=== PATIENT | female | born 1940 | race Caucasian/White ===

== ENCOUNTER 2016-06-17 12:46 | Outpatient (CLI) | payer MEDICARE, OTHER | END 2016-06-17 12:47 | disposition home or self-care (01) | DX: I10 Essential (primary) hypertension (principal) ==

== ENCOUNTER 2016-07-04 09:12 | Outpatient (CLI) | payer MEDICARE, OTHER | END 2016-07-04 09:13 | disposition home or self-care (01) | DX: E78.00 Pure hypercholesterolemia, unspecified (principal) ==

== ENCOUNTER 2016-08-05 10:17 | Outpatient (CLI) | payer MEDICARE, OTHER ==
[2016-08-05 19:03] LABS: CHOL/HDL RATIO 3.5 (<4.4); CHOLESTEROL 233 mg/dL; HDL CHOLESTEROL 66 mg/dL; LDL/HDL RATIO 2.3 (<4.4); TRIGLYCERIDES 68 mg/dL; VLDL CHOLESTEROL 14 mg/dL
== END 2016-08-05 10:18 | disposition home or self-care (01) ==
LOC: LAB.F 10:17
PROVIDERS: ATTEND Internal Medicine
DX: E78.00 Pure hypercholesterolemia, unspecified (principal)
CPT/HCPCS: 36415; 80061

== ENCOUNTER 2017-04-08 09:50 | Outpatient (CLI) | payer MEDICARE, OTHER ==
[2017-04-08 18:56] LABS: ALBUMIN 4.1 g/dL (3.2-5.5); ALBUMIN/GLOBULIN RATIO 1.4 (1.0-2.2); ALKALINE PHOSPHATASE 69 IU/L (42-121); ALT ALANINE AMINOTRANSFERASE 20 IU/L (10-60); AST ASPARTATE AMINOTRANSFERASE 26 IU/L (10-42); BILIRUBIN,TOTAL 1.1 mg/dL (0.2-1.0); BUN - BLOOD UREA NITROGEN 16 mg/dL (6-20); CARBON DIOXIDE - CO2 29 mmol/L (21-32); CHLORIDE 100 mmol/L (101-111); CHOL/HDL RATIO 2.5 (<4.4); CHOLESTEROL 131 mg/dL; CREATININE 0.9 mg/dL (0.4-1.0); GFR - MDRD 61 (>89); GLUCOSE 91 mg/dL (70-100); HDL CHOLESTEROL 53 mg/dL; LDL CHOLESTEROL,CALCULATED 62 mg/dL; LDL/HDL RATIO 1.2 (<4.4); SODIUM 138 mmol/L (135-145); TOTAL PROTEIN 7.1 g/dL (6.7-8.2); VLDL CHOLESTEROL 16 mg/dL
== END 2017-04-08 09:51 | disposition home or self-care (01) ==
LOC: LAB.F 09:50
PROVIDERS: ATTEND Family Medicine
DX: E78.00 Pure hypercholesterolemia, unspecified (principal); I10 Essential (primary) hypertension
CPT/HCPCS: 36415; 80053; 80061; 83721

== ENCOUNTER 2017-04-15 08:51 | Outpatient (CLI) | payer MEDICARE, OTHER ==
[2017-04-15 10:36] LABS: CALCIUM 9.3 mg/dL (8.5-10.3); CREATININE 0.8 mg/dL (0.4-1.0)
== END 2017-04-15 08:52 | disposition home or self-care (01) ==
LOC: LAB.F 08:51
PROVIDERS: ATTEND Family Medicine
DX: E87.6 Hypokalemia (principal)
CPT/HCPCS: 36415; 80048

== ENCOUNTER 2017-05-20 13:08 | Emergency (ER) | payer MEDICARE, OTHER ==
--- NOTE | 2017-05-20 15:47 | ED Physician Documentation ---
PD HPI LOWER EXT INJURY - Stated complaint Stated Complaint: LEG PX - Chief complaint Chief Complaint: Ext Problem - History obtained from History obtained from: Patient - History of Present Illness PD HPI LOW EXT INJURY LOCATION: Right, Lower leg Type of injury: No: Fall, Twist Where injury occurred: Other (she had cramping pain in right leg while in [place] 3 days ago. Lasted for part of a day. Then it improved and felt okay. She then had some tightness feeling in chest for part of a day. She said she did not want to go to ER in [place], so waited until she flew home and arrived today into [place]. Called [facility] to make an appt and they would not give appt with her symptoms and told her to go to the ER. She wanted to go to [facility], since the pain had been 3 days ago, but office staff insisted. She has not had pain in leg nor chest for 3 days.) Timing - onset: How many days ago (3) Timing - duration: Hours Timing - details: Abrupt onset, Now resolved Improved by: Rest Worsened by: No: Palpating Associated symptoms: No: Weakness, Numbness Similar symptoms before: Has not had sx before Recently seen: Not recently seen Review of Systems Constitutional: denies: Fever, Chills Nose: denies: Rhinorrhea / runny nose, Congestion Throat: denies: Sore throat Cardiac: denies: Palpitations, Pedal edema, Calf pain Respiratory: denies: Dyspnea, Cough GI: denies: Abdominal Pain, Nausea, Vomiting, Diarrhea Skin: denies: Rash, Lesions Musculoskeletal: denies: Neck pain, Back pain PD PAST MEDICAL HISTORY - Past Medical History Cardiovascular: Hypertension Endocrine/Autoimmune: None GI: None : None HEENT: None Psych: None Musculoskeletal: None Derm: None - Past Surgical History General: Other HEENT: Other - Present Medications Home Medications: Ambulatory Orders Medication Instructions Recorded Confirmed Potassium Chloride 10 meq PO DAILY #30 tablet.er 05/20/17 - Allergies Allergies/Adverse Reactions: Allergies Allergy/AdvReac Type Severity Reaction Status Date / Time No Known Drug Allergies Allergy Verified 05/20/17 13:19 - Family History Family history: reports: Non contributory PD ED PE NORMAL - Vitals Vital signs reviewed: Yes - General General: Alert and oriented X 3, No acute distress, Well developed/nourished - HEENT HEENT: Pharynx benign - Neck Neck: Supple, no meningeal sign, No adenopathy - Cardiac Cardiac: RRR, No murmur - Respiratory Respiratory: Clear bilaterally - Abdomen Abdomen: Soft, Non tender - Back Back: No CVA TTP - Derm Derm: Normal color, Warm and dry - Extremities Extremities: No deformity, No tenderness to palpate, Normal ROM s pain, No edema , No calf tenderness / cord - Neuro Neuro: Alert and oriented X 3, No motor deficit, Normal speech Results - Vitals Vitals: Oxygen O2 Source Room air - EKG (time done) 16:11 Rate: Rate (enter#) (59) Rhythm: NSR [place]: Normal Intervals: Normal AR Ischemia: Normal ST segments, Other (somewhat low voltage). No: ST elevation c/ w ischemia, ST depression - Labs Labs: Laboratory Tests 05/20/17 05/20/17 05/20/17 16:22 16:22 16:22 WBC 8.4 RBC 4.76 Hgb 13.7 Hct 40.2 MCV 84.5 MCH 28.7 MCHC 34.0 RDW 13.6 Plt Count 296 MPV 8.2 Neut # 4.1 Lymph # 3.2 [place] # 0.6 Eos # 0.5 Baso # 0.1 Absolute Nucleated RBC 0.01 Nucleated RBC % 0.1 Sodium 136 Potassium 2.2 L* Chloride 96 L Carbon Dioxide 27 Anion Gap 13.0 BUN 14 Creatinine 0.9 Estimated GFR (MDRD) 61 L Glucose 113 H Calcium 9.2 Total Bilirubin 0.9 AST 33 ALT 26 Alkaline Phosphatase 72 Troponin I < 0.04 Total Protein 7.2 Albumin 4.5 Globulin 2.7 Albumin/Globulin Ratio 1.7 Lipase 24 - Rads (name of study) duplex right leg Radiology: Prelim report reviewed (no DVT) PD MEDICAL DECISION MAKING - ED course Complexity details: considered differential (She has considerably low potassium , but is looking okay. CP episode does not seem ischemic. ), d/w patient Departure - Departure Disposition: 01 Home, Self Care Clinical Impression: Chest discomfort, Hypokalemia Condition: Stable Record reviewed to determine appropriate education?: Yes Instructions: Hypokalemia Dc Follow-Up: Juan Ramirez MD [Primary Care Provider] - Prescriptions: Potassium Chloride 10 meq PO DAILY #30 tablet.er Comments: Call your primary care clinic tomorrow and tell them your potassium was really low and that the ER doctor suggest changing your blood pressure medicine to one without a diuretic. Meanwhile start a potassium supplement daily as well as a high potassium diet. Have your electrolytes rechecked in about a week. There is no signs of heart attack, blood clots, other significant cause for the episode of arm and chest discomfort you have had on your trip. Normal activity is okay. Discharge Date/Time: 05/20/17 17:58
[2017-05-20 16:38] LABS: BASOPHILS # (AUTO) 0.1 10^3/uL (0.0-0.1); BASOPHILS % (AUTO) 0.7 %; EOSINOPHILS # (AUTO) 0.5 10^3/uL (0.0-0.7); EOSINOPHILS % (AUTO) 5.9 %; HGB - HEMOGLOBIN 13.7 g/dL (12.0-16.0); LYMPHOCYTES # (AUTO) 3.2 10^3/uL (1.5-3.5); LYMPHOCYTES % (AUTO) 37.8 %; MEAN CORPUSCULAR HEMOGLOBIN 28.7 pg (27.0-31.0); MEAN CORPUSCULAR VOLUME 84.5 fL (81.0-99.0); MEAN PLATELET VOLUME 8.2 fL (7.9-10.8); MONOCYTES # (AUTO) 0.6 10^3/uL (0.0-1.0); MONOCYTES % (AUTO) 6.7 %; NEUTROPHILS # (AUTO) 4.1 10^3/uL (1.5-6.6); NEUTROPHILS % (AUTO) 48.9 %; PLT - PLATELET COUNT 296 10^3/uL (130-450); RED BLOOD COUNT 4.76 10^6/uL (4.20-5.40); RED CELL DISTRIBUTION WIDTH 13.6 % (12.0-15.0); WHITE BLOOD COUNT 8.4 x10^3/uL (4.8-10.8)
[2017-05-20 16:49] LABS: ALBUMIN 4.5 g/dL (3.2-5.5); ALBUMIN/GLOBULIN RATIO 1.7 (1.0-2.2); BILIRUBIN,TOTAL 0.9 mg/dL (0.2-1.0); CALCIUM 9.2 mg/dL (8.5-10.3); CREATININE 0.9 mg/dL (0.4-1.0); TOTAL PROTEIN 7.2 g/dL (6.7-8.2)
[2017-05-20] MEDS ORDERED: POTASSIUM BICARB 25 MEQ TABLET PO STA (16:59)
--- NOTE | 2017-05-20 17:23 | Ultrasound Preliminary Report ---
Exam: US DUPLEX EXT VEINS RIGHT IMPRESSION: No evidence for deep venous thrombosis. [facility] SITE ID: [id number]
--- NOTE | 2017-05-20 17:26 | Ultrasound Report ---
EXAM: RIGHT LOWER EXTREMITY VENOUS ULTRASOUND EXAM DATE: 05/20/2017 05:02 PM. CLINICAL HISTORY: Right leg cramping last week while in [place]. COMPARISON: None. TECHNIQUE: Real-time sonographic vascular imaging was performed by the geosciences faculty member through the lower extremity utilizing both color-flow and Doppler spectral analysis. Multiple patient representative static scotty ges were saved for review. FINDINGS: Common Femoral Vein (CFV): Normal. CFV-GSV Junction: Normal. Profunda Femoral Vein (PFV): Normal. Femoral Vein (FV) Prox: Normal. Femoral Vein (FV) Mid: Normal. Femoral Vein (FV) Dist: Normal. Popliteal Vein: Normal. Posterior Tibial Veins: Normal. Peroneal Veins: Normal. Contralateral Side CFV: Normal. Other: None. IMPRESSION: No evidence for deep venous thrombosis. [facility] Referring Provider Line: [phone] SITE ID: [id number]
[2017-05-20 17:57] VITALS: BP 127/92
== END 2017-05-20 17:58 | disposition home or self-care (01) ==
LOC: ED 13:08
DX: R07.89 Other chest pain (principal); E87.6 Hypokalemia; I10 Essential (primary) hypertension; R94.31 Abnormal electrocardiogram [ECG] [EKG]
CPT/HCPCS: 36415; 80053; 83690; 84484; 85025; 93005; 93971; 99283; A9270

== ENCOUNTER 2017-05-26 07:42 | Outpatient (CLI) | payer MEDICARE, OTHER ==
[2017-05-26 10:48] LABS: CREATININE 0.7 mg/dL (0.4-1.0)
== END 2017-05-26 07:43 | disposition home or self-care (01) ==
LOC: LAB.F 07:42
PROVIDERS: ATTEND Family Medicine
DX: E87.6 Hypokalemia (principal); I10 Essential (primary) hypertension
CPT/HCPCS: 36415; 80048

== ENCOUNTER 2017-06-20 11:41 | Outpatient (CLI) | payer MEDICARE, OTHER ==
[2017-06-20 18:28] LABS: CALCIUM 9.2 mg/dL (8.5-10.3); CREATININE 0.8 mg/dL (0.4-1.0)
== END 2017-06-20 11:42 | disposition home or self-care (01) ==
LOC: LAB.F 11:41
PROVIDERS: ATTEND Family Medicine
DX: E87.6 Hypokalemia (principal)
CPT/HCPCS: 36415; 80048

== ENCOUNTER 2017-08-21 11:09 | Outpatient (CLI) | payer MEDICARE, OTHER ==
[2017-08-21 18:38] LABS: CALCIUM 9.3 mg/dL (8.5-10.3); CREATININE 0.7 mg/dL (0.4-1.0)
== END 2017-08-21 11:10 | disposition home or self-care (01) ==
LOC: LAB.F 11:09
PROVIDERS: ATTEND Internal Medicine
DX: I10 Essential (primary) hypertension (principal)
CPT/HCPCS: 36415; 80048

== ENCOUNTER 2017-08-29 10:01 | Outpatient (CLI) | payer MEDICARE, OTHER ==
[2017-08-29 18:12] LABS: CALCIUM 9.2 mg/dL (8.5-10.3); CREATININE 0.8 mg/dL (0.4-1.0)
== END 2017-08-29 10:02 | disposition home or self-care (01) ==
LOC: LAB.F 10:01
PROVIDERS: ATTEND Internal Medicine
DX: E87.6 Hypokalemia (principal)
CPT/HCPCS: 36415; 80048

== ENCOUNTER 2017-10-07 08:09 | Outpatient (CLI) | payer MEDICARE, OTHER ==
[2017-10-07 11:59] LABS: BUN - BLOOD UREA NITROGEN 16 mg/dL (6-20); CALCIUM 8.8 mg/dL (8.5-10.3); CARBON DIOXIDE - CO2 27 mmol/L (21-32); CHLORIDE 104 mmol/L (101-111); CHOL/HDL RATIO 2.8 (<4.4); CHOLESTEROL 214 mg/dL; CREATININE 0.8 mg/dL (0.4-1.0); GFR - MDRD 69 (>89); GLUCOSE 92 mg/dL (70-100); HDL CHOLESTEROL 76 mg/dL; LDL CHOLESTEROL,CALCULATED 124 mg/dL; LDL/HDL RATIO 1.6 (<4.4); SODIUM 138 mmol/L (135-145); VLDL CHOLESTEROL 14 mg/dL
== END 2017-10-07 08:10 | disposition home or self-care (01) ==
LOC: LAB.F 08:09
PROVIDERS: ATTEND Internal Medicine
DX: E78.00 Pure hypercholesterolemia, unspecified (principal); E87.6 Hypokalemia
CPT/HCPCS: 36415; 80048; 80061; 83721

== ENCOUNTER 2018-03-20 09:33 | Outpatient (CLI) | payer MEDICARE, OTHER ==
--- NOTE | 2018-03-23 09:27 | DEXA Report ---
Reason: POSTMENOPAUSAL STATUS, OSTEOPENIA Procedure Date: 03/20/2018 Accession Number: [id number] / [id number] Procedure: DEX - Dexa Spine and/or Hip CPT Code: FULL RESULT: EXAM: Dexa Spine and/or Hip DATE: 03/20/2018 10:20 AM CLINICAL HISTORY: POSTMENOPAUSAL STATUS, OSTEOPENIA TECHNIQUE: Dual energy x-ray absorptiometry (DXA) was performed on a [employer] System. Regions measured are the AP Spine, femoral neck, and if needed forearm. COMPARISON: None. In accordance with the International Society for Clinical Densitometry (ISCD) guidelines, data from previous exams may be reanalyzed using current recommendations and techniques. This is done to allow a more accurate basis for comparison with the current study. FINDINGS: The data for the lumbar spine is as follows: BMD (g/cm/cm) T-SCORE Z-SCORE REGION L1 1.266 1.1 3.2 L2 1.434 2.0 4.0 L3 1.354 1.3 3.3 L4 1.376 1.5 3.5 TOTAL 1.360 1.5 3.5 NOTE: All evaluable vertebrae are used for classification The data for the hip is as follows: BMD (g/cm/cm) T-SCORE Z-SCORE REGION Neck 0.787 -1.8 0.5 TOTAL 0.800 -1.6 0.5 NOTE: The femoral neck or total proximal femur, whichever is lowest, is used for classification. IMPRESSION: THE WHO CLASSIFICATION BASED ON THE INTERNATIONAL REFERENCE STANDARD IS OSTEOPENIA. THE FRACTURE RISK IS INCREASED. RECOMMENDATION: Patients with diagnosis of osteoporosis or osteopenia should have regular bone mineral density assessment. For those eligible for Medicare, routine testing is allowed once every 2 years. Testing frequency can be increased for patients who have rapidly progressing disease or for those who are receiving medical therapy to restore bone mass. COMMENT: World Health Organization (WHO) definitions for osteoporosis and osteopenia: NORMAL BMD: T-score at -1.0 or higher, fracture risk is low OSTEOPENIA BMD: T-score between -1.0 and -2.5, fracture risk is increased. OSTEOPOROSIS BMD: T-score at -2.5 or lower, fracture risk is high. National Osteoporosis Foundation recommends: 1. Obtain adequate dietary calcium (at least 1200 mg per day) and vitamin D (400-800 international units per day). 2. Participate, as appropriate, in regular weightbearing and muscle-strengthening exercise. 3. Avoid tobacco use and reduce alcohol and caffeine intake. 4. For more detailed information see the website at www.NOF.org.
== END 2018-03-20 09:34 | disposition home or self-care (01) ==
LOC: DI 09:33
PROVIDERS: ATTEND Internal Medicine
DX: M85.88 Other specified disorders of bone density and structure, other site (principal); Z78.0 Asymptomatic menopausal state
CPT/HCPCS: 77080